=== PATIENT | male | born 1980 | race Caucasian/White ===

== ENCOUNTER → 2017-06-18 | Outpatient (CLI) | payer SELFPAY ==
[~2017-06-18] MED LIST: LEVO750 PO; VICODIN ES 7.51 EACH PO
== END | disposition home or self-care (01) ==
LOC: LAB 10:25
DX: R19.7 Diarrhea, unspecified (principal)
CPT/HCPCS: 87015; 87045; 87046; 87177; 87205; 87209; 87899

== ENCOUNTER → 2018-01-25 | Outpatient (CLI) | payer OTHER ==
[2018-01-25 10:47] LABS: BASOPHILS ABSOLUTE AUTO 0.03 K/mm3 (0.00-0.23); BASOPHILS PERCENT AUTO 1 % (0-2); EOSINOPHILS ABSOLUTE AUTO 0.08 K/mm3 (0.00-0.68); EOSINOPHILS PERCENT AUTO 1 % (0-6); Hematocrit 41.5 % (37.0-53.0); Hemoglobin 14.8 g/dL (13.5-17.5); IMMATURE GRAN ABSOLUTE AUTO 0.04 K/mm3 (0.00-0.10); IMMATURE GRAN PERCENT AUTO 1 % (0-1); LYMPHOCYTES ABSOLUTE AUTO 1.21 K/mm3 (0.84-5.20); LYMPHOCYTES PERCENT AUTO 20 % (21-46); MONOCYTES ABSOLUTE AUTO 0.77 K/mm3 (0.16-1.47); MONOCYTES PERCENT AUTO 13 % (4-13); Mean Corpuscular HGB 31.6 pg (26.0-34.0); Mean Corpuscular HGB Conc 35.7 g/dL (31.5-36.5); Mean Corpuscular Volume 89 fL (80-100); Mean Platelet Volume 8.4 fL (9.1-12.4); NEUTROPHILS ABSOLUTE AUTO 3.82 K/mm3 (1.96-9.15); NEUTROPHILS PERCENT AUTO 64 % (41-73); Platelet Count 227 K/mm3 (150-400); RDW Coefficient Variation 12.9 % (11.7-14.2); RDW Standard Deviation 41.8 fL (35.1-46.3); Red Blood Cell Count 4.69 M/mm3 (4.30-5.90); White Blood Cell Count 5.95 K/mm3 (4.00-11.30)
[2018-01-25 11:19] LABS: Alanine Aminotransfer (ALT/SGP 52 U/L (12-78); Albumin, Blood 3.9 g/dL (3.4-5.0); Alk Phos 101 U/L (50-136); Anion Gap 7 mmol/L (6-16); Aspartate Aminotrans (AST/SGOT 40 U/L (12-37); Bilirubin, Total 1.1 mg/dL (0.1-1.0); Blood Urea Nitrogen 17 mg/dL (8-24); Bun/Creatinine Ratio 16.5 (12.0-20.0); CO2, Blood 28 mmol/L (21-32); Calcium, Blood 9.2 mg/dL (8.5-10.1); Chloride, Blood 105 mmol/L (98-108); Creatinine, Blood 1.03 mg/dL (0.60-1.20); Globulin, Blood 4.1 g/dL (2.2-4.0); Glomerular Filtration Rate >60 (60-); Glucose, Blood 87 mg/dL (70-99); Potassium, Blood 4.2 mmol/L (3.5-5.5); Sodium, Blood 140 mmol/L (136-145); Uric Acid, Blood 7.1 mg/dL (3.5-7.2)
[2018-01-27 11:27] LABS: Antinuclear Antibody Screen Negative (Negative)
[2018-01-27 13:42] LABS: Rheumatoid Factor, Serum Negative (Negative)
== END ==
LOC: LAB 10:40 → LAB SHORT 10:40
PROVIDERS: Nurse Practitioner
DX: M79.671 Pain in right foot (principal); M10.00 Idiopathic gout, unspecified site
CPT/HCPCS: 80053; 84550; 85025; 85651; 86038; 86430

== ENCOUNTER 2021-06-23 09:16 | Day surgery (SDC) | payer OTHER ==
[~2021-06-23] VITALS: Ht 190.5 cm; Wt 160.1 kg
[~2021-06-23 09:16] MED LIST changes: +ALLO300 PO; +GABA300 PO; +METO25 PO; +MOBIC15 MG PO; +PRAZ1 PO; +TRAZ50 PO
--- NOTE | 2021-06-23 12:29 | NUR ---
06/23/21 1229 Cynthia White PT INTUBATED ON GURNEY THEN MOVED TO OR TABLE. DIME SIZE SCAB ON RIGHT LEG, BELOW THE KNEE
== END 2021-06-23 13:50 | disposition home or self-care (01) ==
LOC: ORSCSDS 09:16
PROVIDERS: Podiatrist Foot & Ankle Surgery
PROC: 0L8N0ZZ Division of Right Lower Leg Tendon, Open Approach (ICD-10-PCS; principal; 2021-06-23 10:45)
DX: M76.61 Achilles tendinitis, right leg (principal); M67.88 Other specified disorders of synovium and tendon, other site; I10 Essential (primary) hypertension; Z87.891 Personal history of nicotine dependence; G47.33 Obstructive sleep apnea (adult) (pediatric); K21.9 Gastro-esophageal reflux disease without esophagitis; E66.01 Morbid (severe) obesity due to excess calories; Z68.41 Body mass index [BMI] 40.0-44.9, adult; Z79.899 Other long term (current) drug therapy
CPT/HCPCS: A9270; J0171; J1100; J1885; J2250; J2405; J2704; J2710; J3010; J3370; J7050; J7120

== ENCOUNTER 2021-09-23 21:04 | Emergency (ER) | payer OTHER ==
[~2021-09-23] VITALS: Ht 190.5 cm; Wt 165.6 kg
[2021-09-23 23:57] LABS: BASOPHILS ABSOLUTE AUTO 0.03 K/mm3 (0.00-0.23); BASOPHILS PERCENT AUTO 0 % (0-2); EOSINOPHILS PERCENT AUTO 0 % (0-6); Hematocrit 46.9 % (37.0-53.0); Hemoglobin 16.7 g/dL (13.5-17.5); IMMATURE GRAN ABSOLUTE AUTO 0.03 K/mm3 (0.00-0.10); IMMATURE GRAN PERCENT AUTO 0 % (0-1); LYMPHOCYTES PERCENT AUTO 15 % (21-46); MONOCYTES ABSOLUTE AUTO 0.81 K/mm3 (0.16-1.47); MONOCYTES PERCENT AUTO 11 % (4-13); Mean Corpuscular HGB 31.4 pg (26.0-34.0); Mean Corpuscular HGB Conc 35.6 g/dL (31.5-36.5); Mean Corpuscular Volume 88 fL (80-100); Mean Platelet Volume 8.5 fL (9.1-12.4); NEUTROPHILS ABSOLUTE AUTO 5.47 K/mm3 (1.96-9.15); NEUTROPHILS PERCENT AUTO 74 % (41-73); Platelet Count 203 K/mm3 (150-400); RDW Coefficient Variation 13.1 % (11.7-14.2); RDW Standard Deviation 42.1 fL (35.1-46.3); Red Blood Cell Count 5.32 M/mm3 (4.30-5.90); White Blood Cell Count 7.44 K/mm3 (4.00-11.30)
[2021-09-24 00:13] LABS: Alanine Aminotransfer (ALT/SGP 53 U/L (12-78); Albumin, Blood 4.1 g/dL (3.4-5.0); Alk Phos 107 U/L (50-136); Anion Gap 6 mmol/L (6-16); Aspartate Aminotrans (AST/SGOT 30 U/L (12-37); Bilirubin, Total 1.1 mg/dL (0.1-1.0); Blood Urea Nitrogen 15 mg/dL (8-24); Bun/Creatinine Ratio 14.3 (12.0-20.0); CO2, Blood 27 mmol/L (21-32); Calcium, Blood 8.9 mg/dL (8.5-10.1); Chloride, Blood 101 mmol/L (98-108); Creatinine, Blood 1.05 mg/dL (0.60-1.20); Glomerular Filtration Rate >60 (60-); Glucose, Blood 121 mg/dL (70-99); Potassium, Blood 3.9 mmol/L (3.5-5.5); Sodium, Blood 134 mmol/L (136-145); Total Protein, Blood 8.1 g/dL (6.4-8.2)
[2021-09-24] MEDS ORDERED: LORA.5 PO (07:39)
[2021-09-24] MEDS ORDERED: Robaxin750 MG PO (11:08)
[2021-09-24] MEDS ORDERED: Norco 5-325 Ta1 EACH PO (11:08)
== END 2021-09-24 08:04 | disposition home or self-care (01) ==
LOC: ER 21:04
PROVIDERS: Student in an Organized Health Care Education/Training Program
DX: M75.32 Calcific tendinitis of left shoulder (principal); R50.9 Fever, unspecified; I10 Essential (primary) hypertension; F17.200 Nicotine dependence, unspecified, uncomplicated; Z88.0 Allergy status to penicillin; Z79.899 Other long term (current) drug therapy
CPT/HCPCS: 20610; 36415; 73030; 73202; 80053; 83605; 84484; 85025; 85651; 86141; 87040; 87147; 93005; 93010; 96374; 96375; 99284-25; A9270; J0696; J1885; J2270; J2405; J2765; Q9967

== ENCOUNTER 2021-09-25 16:07 | Observation (INO) | payer OTHER ==
[~2021-09-25] VITALS: Ht 190.5 cm; Wt 161.8 kg
[~2021-09-25 16:07] MED LIST changes: +LORA.5 PO; +Norco 5-325 Ta1 EACH PO; +Robaxin750 MG PO
[2021-09-25 17:30] LABS: BASOPHILS ABSOLUTE AUTO 0.04 K/mm3 (0.00-0.23); BASOPHILS PERCENT AUTO 0 % (0-2); EOSINOPHILS ABSOLUTE AUTO 0.03 K/mm3 (0.00-0.68); EOSINOPHILS PERCENT AUTO 0 % (0-6); Hematocrit 43.6 % (37.0-53.0); Hemoglobin 15.4 g/dL (13.5-17.5); IMMATURE GRAN ABSOLUTE AUTO 0.04 K/mm3 (0.00-0.10); IMMATURE GRAN PERCENT AUTO 0 % (0-1); LYMPHOCYTES ABSOLUTE AUTO 1.08 K/mm3 (0.84-5.20); LYMPHOCYTES PERCENT AUTO 8 % (21-46); MONOCYTES ABSOLUTE AUTO 1.42 K/mm3 (0.16-1.47); MONOCYTES PERCENT AUTO 11 % (4-13); Mean Corpuscular HGB 31.4 pg (26.0-34.0); Mean Corpuscular HGB Conc 35.3 g/dL (31.5-36.5); Mean Corpuscular Volume 89 fL (80-100); Mean Platelet Volume 8.7 fL (9.1-12.4); NEUTROPHILS ABSOLUTE AUTO 10.35 K/mm3 (1.96-9.15); NEUTROPHILS PERCENT AUTO 80 % (41-73); Platelet Count 199 K/mm3 (150-400); RDW Coefficient Variation 13.4 % (11.7-14.2); RDW Standard Deviation 44.1 fL (35.1-46.3); Red Blood Cell Count 4.91 M/mm3 (4.30-5.90); White Blood Cell Count 12.96 K/mm3 (4.00-11.30)
[2021-09-25 17:45] LABS: Anion Gap 6 mmol/L (6-16); Blood Urea Nitrogen 13 mg/dL (8-24); Bun/Creatinine Ratio 14.6 (12.0-20.0); CO2, Blood 28 mmol/L (21-32); Calcium, Blood 9.1 mg/dL (8.5-10.1); Chloride, Blood 96 mmol/L (98-108); Creatinine, Blood 0.89 mg/dL (0.60-1.20); Glomerular Filtration Rate >60 (60-); Glucose, Blood 114 mg/dL (70-99); Potassium, Blood 3.8 mmol/L (3.5-5.5); Sodium, Blood 130 mmol/L (136-145)
[2021-09-25 17:46] LABS: C-REACTIVE PROTEIN, EXT RANGE >19.000 mg/dL (0.000-0.300)
--- NOTE | 2021-09-25 20:57 | NUR ---
ADMIT NOTE 41 YR OLD MALE ADMITTED TO FLOOR FROM THE ED WITH DX OF LEFT SHOULDER PAIN. POSSIBLE HX OF ARTHRITIS, ED RN REPORTED PT NPO AT MIDNIGHT FOR POSSIBLE MRI OF SHOULDER IN THE AM. PT AWARE. ORIENTED TO USE OF CALL LIGHT. CALL LIGHT IN REACH. UP AD SAMIRA. WILL CONTINUE TO MONITOR
--- NOTE | 2021-09-26 03:34 | NUR ---
WAGON PERSON SUMMARY PT ADMIT F/ED FOR LEFT SHOULDER PAIN. MRI SCHEDULED 09/26 AM. NPO SINCE MIDNIGHT. A/OX 4. FULL CODE. PLEASANT AND COOPERATIVE. VOICED ANXIETY ABOUT HIS NOT BEING ABLE TO STAY. PT HX OF HTN, BACK SURGERY, AND NEUROPATHY. PT HAS ELEVATED WBC. PT REPORTS PAIN RELIEVED W/TORADOL. NO FENTANYL GIVEN. PT IS INDEPENDENT. TOOK A SHOWER. CALL LIGHT EXPLAINED/IN REACH.
[2021-09-26 05:25] LABS: BASOPHILS ABSOLUTE AUTO 0.01 K/mm3 (0.00-0.23); BASOPHILS PERCENT AUTO 0 % (0-2); EOSINOPHILS PERCENT AUTO 0 % (0-6); Hematocrit 44.8 % (37.0-53.0); Hemoglobin 15.6 g/dL (13.5-17.5); IMMATURE GRAN ABSOLUTE AUTO 0.04 K/mm3 (0.00-0.10); IMMATURE GRAN PERCENT AUTO 1 % (0-1); LYMPHOCYTES ABSOLUTE AUTO 0.88 K/mm3 (0.84-5.20); LYMPHOCYTES PERCENT AUTO 11 % (21-46); MONOCYTES ABSOLUTE AUTO 0.43 K/mm3 (0.16-1.47); MONOCYTES PERCENT AUTO 5 % (4-13); Mean Corpuscular HGB Conc 34.8 g/dL (31.5-36.5); Mean Corpuscular Volume 89 fL (80-100); Mean Platelet Volume 8.8 fL (9.1-12.4); NEUTROPHILS ABSOLUTE AUTO 6.86 K/mm3 (1.96-9.15); NEUTROPHILS PERCENT AUTO 84 % (41-73); Platelet Count 200 K/mm3 (150-400); RDW Coefficient Variation 13.2 % (11.7-14.2); RDW Standard Deviation 43.1 fL (35.1-46.3); Red Blood Cell Count 5.03 M/mm3 (4.30-5.90); White Blood Cell Count 8.22 K/mm3 (4.00-11.30)
[2021-09-26 05:51] LABS: Alanine Aminotransfer (ALT/SGP 38 U/L (12-78); Albumin, Blood 3.2 g/dL (3.4-5.0); Albumin/Globulin Ratio 0.8 (0.8-1.8); Alk Phos 92 U/L (50-136); Anion Gap 6 mmol/L (6-16); Aspartate Aminotrans (AST/SGOT 17 U/L (12-37); Bilirubin, Total 0.7 mg/dL (0.1-1.0); Blood Urea Nitrogen 17 mg/dL (8-24); CO2, Blood 27 mmol/L (21-32); Calcium, Blood 8.9 mg/dL (8.5-10.1); Chloride, Blood 100 mmol/L (98-108); Creatinine, Blood 0.85 mg/dL (0.60-1.20); Glomerular Filtration Rate >60 (60-); Glucose, Blood 152 mg/dL (70-99); Potassium, Blood 4.5 mmol/L (3.5-5.5); Sodium, Blood 133 mmol/L (136-145); Total Protein, Blood 7.2 g/dL (6.4-8.2)
[2021-09-26 14:41] LABS: Vancomycin, Trough 14.5 ug/mL (5.0-10.0)
[2021-09-26] MEDS ORDERED: CEPH500 PO (17:18)
--- NOTE | 2021-09-26 19:02 | NUR ---
SHIFT SUMMARY PT DC'D HOME. PIV DC'D WITH CATH TIP INTACT. SITE WNL'S. MEDS FAXED TO [facility] [place]. DC INSTRUCTIONS GIVEN WITH PRESENT. PT HOME WITH TO PERSONAL VEHICLE.
== END 2021-09-26 17:49 | disposition home or self-care (01) ==
LOC: ER 16:07 → MEDS 16:08 → ER 20:03 → MEDS 20:30
PROVIDERS: Physician Assistant; ADMIT Internal Medicine
DX: M19.012 Primary osteoarthritis, left shoulder (principal); A41.9 Sepsis, unspecified organism; S43.005A Unspecified dislocation of left shoulder joint, initial encounter; F17.220 Nicotine dependence, chewing tobacco, uncomplicated; Z90.49 Acquired absence of other specified parts of digestive tract; E66.9 Obesity, unspecified; I10 Essential (primary) hypertension; Z68.42 Body mass index [BMI] 45.0-49.9, adult; Z88.0 Allergy status to penicillin; Z88.1 Allergy status to other antibiotic agents; X58.XXXA Exposure to other specified factors, initial encounter
CPT/HCPCS: 36415; 71046; 80048; 80053; 80202; 83605; 85025; 85651; 86140; 87040; 96374; 96375; 99284-25; A9270; J0696; J1650; J1885; J2930; J3370; J7060

== ENCOUNTER 2022-05-13 02:56 | Emergency (ER) | payer OTHER ==
[~2022-05-13] VITALS: Ht 190.5 cm; Wt 165.6 kg
[~2022-05-13 02:56] MED LIST changes: +CELECOXIB100 M1 PO; +CEPH500 PO; +HYDHCL25 PO; +METOPROLOL TART50 M9 PO
[2022-05-13 03:45] LABS: BASOPHILS ABSOLUTE AUTO 0.04 K/mm3 (0.00-0.23); BASOPHILS PERCENT AUTO 0 % (0-2); EOSINOPHILS ABSOLUTE AUTO 0.12 K/mm3 (0.00-0.68); EOSINOPHILS PERCENT AUTO 1 % (0-6); Hematocrit 48.3 % (37.0-53.0); Hemoglobin 17.5 g/dL (13.5-17.5); IMMATURE GRAN ABSOLUTE AUTO 0.05 K/mm3 (0.00-0.10); IMMATURE GRAN PERCENT AUTO 1 % (0-1); LYMPHOCYTES ABSOLUTE AUTO 2.14 K/mm3 (0.84-5.20); LYMPHOCYTES PERCENT AUTO 23 % (21-46); MONOCYTES PERCENT AUTO 11 % (4-13); Mean Corpuscular HGB 30.9 pg (26.0-34.0); Mean Corpuscular HGB Conc 36.2 g/dL (31.5-36.5); Mean Corpuscular Volume 85 fL (80-100); Mean Platelet Volume 8.2 fL (9.1-12.4); NEUTROPHILS ABSOLUTE AUTO 5.95 K/mm3 (1.96-9.15); NEUTROPHILS PERCENT AUTO 64 % (41-73); Platelet Count 292 K/mm3 (150-400); RDW Coefficient Variation 13.2 % (11.7-14.2); RDW Standard Deviation 40.8 fL (35.1-46.3); Red Blood Cell Count 5.66 M/mm3 (4.30-5.90)
[2022-05-13 04:04] LABS: Albumin, Blood 3.7 g/dL (3.4-5.0); Albumin/Globulin Ratio 0.9 (0.8-1.8); Bilirubin, Total 0.5 mg/dL (0.1-1.0); Calcium, Blood 9.2 mg/dL (8.5-10.1); Creatinine, Blood 0.94 mg/dL (0.60-1.20); Globulin, Blood 3.9 g/dL (2.2-4.0); Potassium, Blood 3.8 mmol/L (3.5-5.5); Total Protein, Blood 7.6 g/dL (6.4-8.2)
== END 2022-05-13 07:27 | disposition home or self-care (01) ==
LOC: ER 02:56
PROVIDERS: Emergency Medicine
DX: R10.11 Right upper quadrant pain (principal); I10 Essential (primary) hypertension; Z88.0 Allergy status to penicillin; Z79.899 Other long term (current) drug therapy; Z87.891 Personal history of nicotine dependence
CPT/HCPCS: 36415; 76705; 80053; 83690; 84484; 85025; 93005; 93010; J1170; J2405

== ENCOUNTER 2025-03-05 07:37 | Day surgery (SDC) | payer OTHER ==
[~2025-03-05] VITALS: Ht 190.5 cm; Wt 157.2 kg
[~2025-03-05 07:37] MED LIST changes: +CeFAZolin Sodium 3,000 MG in NS 100 ML IV SCH; +DEPO-TESTO200 MG/1 M IM; +HYDPAM50 PO; +LISI20 PO; +ROSUVASTATIN CA20 MG PO; +ZESTRIL40 M1 PO
[2025-03-05 08:10] VITALS: BP 179/92
--- NOTE | 2025-03-05 08:27 | NUR ---
Ambulatory in Day Surgery accompanied by his and child. History, Chart, Medications and Allergies reviewed before start of procedure. Patient confirms NPO status and agrees with scheduled surgery. Pre-Op teaching done. Pt verbalizes understanding. Patient States Post-Procedure ride home has been arranged. Pt belongings placed underneath gurney for safekeeping. Pt glasses and dentures taken to PACU for safekeeping.
[2025-03-05] MEDS ORDERED: FentaNYL Citrate 50 MCG/ML 2 ML Injection ONE ×2 (08:40→09:37)
[2025-03-05] MEDS ORDERED: Metoclopramide HCl 5MG / ML 2ML Vial IV PRN (08:50)
[2025-03-05] MEDS ORDERED: HYDROmorphone HCl/Pf 1MG SYR IV PRN ×2 (08:55)
[2025-03-05] MEDS ORDERED: Midazolam HCl 1MG / ML 2ML Vial IV ONE (08:55)
[2025-03-05] MEDS ORDERED: Albuterol 2.5 MG/3 ML VIAL INH PRN (08:55)
[2025-03-05] MEDS ORDERED: FentaNYL Citrate 50 MCG/ML 2 ML Injection IV PRN ×2 (08:55→09:05)
[2025-03-05] MEDS ORDERED: Bupivacaine 0.5% HCl 5 MG/ML 30MLVIAL ONE (09:00)
[2025-03-05] MEDS ORDERED: Ondansetron HCl 2 MG / ML 2ML Vial IV PRN (09:05)
[2025-03-05] MEDS ORDERED: Dexamethasone Sod Phos 10 MG/ML 1ML VIAL ONE (09:18)
[2025-03-05] MEDS ORDERED: Ondansetron HCl 2 MG / ML 2ML Vial ONE (09:18)
[2025-03-05] MEDS ORDERED: Ketorolac Tromethamine 30mg Vial ONE (09:19)
[2025-03-05] MEDS ORDERED: Rocuronium Bromide 10 MG/ML 5ML Injection IV ONE ×2 (09:19→10:01)
[2025-03-05] MEDS ORDERED: SuccINYLCHOLINE Chloride 100 MG/5 ML 5MLSYR ONE (09:19)
[2025-03-05] MEDS ORDERED: Sugammadex Sodium 200 MG/2ML SDV (100 MG/ML) ONE ×2 (10:31→10:37)
[2025-03-05 11:10] VITALS: BP 122/79
[2025-03-05] MEDS ORDERED: HYDROcodone 5-APAP 325 TAB PO PRN (11:10)
[2025-03-05 11:15] VITALS: BP 120/83
[2025-03-05 11:20] VITALS: BP 113/74
[2025-03-05 11:25] VITALS: BP 129/84
[2025-03-05 11:38] VITALS: BP 125/85
--- NOTE | 2025-03-05 12:12 | NUR ---
Discharge instructions reviewed with patient. Patient verbalizes understanding. Copy given to patient to take home. Patient States Post-Procedure ride home has been arranged. Discharged via wheelchair to private car for ride home.
== END 2025-03-05 23:00 | disposition home or self-care (01) ==
LOC: ORSCMMR 07:37 → ORD 08:00 → ORSCMMR 09:00
PROVIDERS: Surgery
PROC: 8E0W4CZ Robotic Assisted Procedure of Trunk Region, Percutaneous Endoscopic Approach (ICD-10-PCS; principal; 2025-03-05 09:00)
PROC: BF031ZZ Plain Radiography of Gallbladder and Bile Ducts using Low Osmolar Contrast (ICD-10-PCS; principal; 2025-03-05 09:00)
PROC: 0FT44ZZ Resection of Gallbladder, Percutaneous Endoscopic Approach (ICD-10-PCS; principal; 2025-03-05 09:00)
DX: K80.10 Calculus of gallbladder with chronic cholecystitis without obstruction (principal); K82.8 Other specified diseases of gallbladder; I10 Essential (primary) hypertension; G47.33 Obstructive sleep apnea (adult) (pediatric); K21.9 Gastro-esophageal reflux disease without esophagitis; Z79.899 Other long term (current) drug therapy; E78.5 Hyperlipidemia, unspecified; E88.810 Metabolic syndrome; F43.10 Post-traumatic stress disorder, unspecified; F32.A Depression, unspecified; Z87.891 Personal history of nicotine dependence; Z68.41 Body mass index [BMI] 40.0-44.9, adult
CPT/HCPCS: 74300; 88304; C1729; J0330; J0690; J1100; J1885; J2250; J2405; J2704; J3010; J7120